=== PATIENT | male | born 1975 | race African-American/Black ===

== ENCOUNTER 2018-01-29 17:48 | Emergency (ER) | payer SELFPAY ==
--- NOTE | 2018-01-29 19:40 | RAD ---
PA AND LATERAL OF THE CHEST: 01/29/18 INDICATION: Cough. IMPRESSION: No acute abnormality. The examination is not appreciably changed from comparison dated 05/17/09 or 10/23. POS: [facility]
== END 2018-01-29 18:50 | disposition home or self-care (01) ==
LOC: ERS 17:48
DX: J20.9 Acute bronchitis, unspecified (principal); B34.9 Viral infection, unspecified; J45.909 Unspecified asthma, uncomplicated
CPT/HCPCS: 71046

== ENCOUNTER 2019-09-27 08:19 | Outpatient (CLI) | payer OTHER ==
--- NOTE | 2019-09-27 09:43 | MRI ---
MR of the right shoulder without contrast INDICATION: Right shoulder pain. Strain of the right shoulder TECHNIQUE: Sagittal T1, axial and coronal PD fat sat, sagittal and coronal T2 fat sat images were obt ained of the right shoulder. COMPARISON: Right shoulder radiograph dated May 26, 2019 FINDINGS: Rotator cuff: There is a high-grade partial thickness articular surface tear involving the conjoined tendon at the footprint measuring 1.4 x 0.7 cm in its greatest AP and mediolateral dimensions respectively. The tear involves approximately two thirds of the width of the tendon insertion at the footprint. There is mild supraspinatus and infraspinatus tendinosis. There is a low-grade articular surface tear involving the cranial subscapularis at the footprint on image 16 of series 3 involving o ne third of the tendon thickness. Glenohumeral joint: There is a small articular cartilage fissure with subchondral cystlike abnormalit y involving the posterior inferior glenoid. The cyst measures 5.2 mm. Glenoid labrum: There is a full-thickness tear involving the posterior inferior, inferior, anterior i nferior and anterior glenoid labrum. There is a small para labral cyst seen along the inferior margin of the glenoid on image 11 of series 4 measuring 8.4 mm. There is an additional larger para la bral cyst seen along the anterior margin of the glenoid measuring 1.1 x 1.6 cm. The superior glenoid labrum appears intact. The biceps anchor appears intact. Biceps tendon and biceps anchor: There is mild tendinosis of the intra-articular biceps tendon. The b iceps tendon is located. Acromion clavicular joint: There is moderate AC joint osteoarthrosis. Subacromial subdeltoid space: Small amount of fluid is seen within the subacromial subdeltoid bursa. Axillary region: No lymphadenopathy. Surrounding shoulder musculature: There is nonspecific mild muscular atrophy of the teres minor. The remaining rotator cuff musculature appears within normal limits. The deltoid appears within normal limits. No abnormal mass is seen within the quadrangular space. IMPRESSION: 1. High-grade partial thickness articular surface tear of the conjoined tendon at the footprint. 2. Low-grade partial thickness articular surface tear of the cranial subscapularis at the footprint. 3. Glenoid labral tear with associated para labral cyst involving the glenoid labrum from 3:00 throug h the 9:00 position. 4. Nonspecific mild muscular atrophy of the teres minor. No quadrant airspace mass is identified. The deltoid has normal appearance. 5. Moderate AC joint osteoarthrosis. 6. Mild increased fluid in the subacromial subdeltoid bursa may reflect underlying bursitis.
== END 2019-09-27 08:20 | disposition home or self-care (01) ==
LOC: TBSIIMAG 08:19
PROVIDERS: ATTEND Family Medicine
DX: S46.911D Strain of unspecified muscle, fascia and tendon at shoulder and upper arm level, right arm, subsequent encounter (principal); M19.011 Primary osteoarthritis, right shoulder; M62.511 Muscle wasting and atrophy, not elsewhere classified, right shoulder; M25.811 Other specified joint disorders, right shoulder; S43.491A Other sprain of right shoulder joint, initial encounter; M24.111 Other articular cartilage disorders, right shoulder

== ENCOUNTER 2020-11-10 08:24 | Outpatient (CLI) | payer OTHER ==
[2020-11-10] MEDS ORDERED: Gadobenate Dimeglumine 529 MG/1 ML (20ML VIAL) ONE (09:00)
[2020-11-10] MEDS ORDERED: Iopamidol 300 61% 50 ML VIAL FS ONE (09:00)
[2020-11-10] MEDS ORDERED: EPINEPHrine 1 MG/ML AMP ONE (09:00)
[2020-11-10] MEDS ORDERED: Lidocaine 1% PF 10 ML AMP ONE (09:00)
[2020-11-10] MEDS ORDERED: Magnevist 469MG/ML 20 ML VIAL ONE (14:23)
== END 2020-11-10 08:25 | disposition home or self-care (01) ==
LOC: RAD 08:24
PROVIDERS: ATTEND Orthopaedic Surgery
DX: S46.011D Strain of muscle(s) and tendon(s) of the rotator cuff of right shoulder, subsequent encounter (principal); S46.911A Strain of unspecified muscle, fascia and tendon at shoulder and upper arm level, right arm, initial encounter; S43.431A Superior glenoid labrum lesion of right shoulder, initial encounter; S43.001A Unspecified subluxation of right shoulder joint, initial encounter; M19.011 Primary osteoarthritis, right shoulder
CPT/HCPCS: 23350; A9577; A9579; J0171; J2001; Q9967

== ENCOUNTER 2021-01-05 16:08 | Outpatient (CLI) | payer BC ==
[2021-01-05 18:05] LABS: #Eosinphils 0.2 10x3/uL (0.0-0.5); #Monocytes 0.7 10x3/uL (0.0-1.1); #Neutrophils 3.6 10x3/uL (1.5-8.4); %Basophils 0.3 % (0.0-2.0); %Eosinophils 2.6 % (0.0-6.0); %Monocytes 10.5 % (0.0-10.0); %Neutrophils 56.3 % (40.0-75.0); Hemoglobin 13.3 g/dL (13.5-17.5); Mean Corpuscular HGB CONC 33.6 g/dL (32.0-36.0); Mean Corpuscular Hemoglobin 30.6 pg (27.0-33.0); Mean Corpuscular Volume 91.2 fl (81.2-95.1); Mean Platelet Volume 9.9 fl (7.4-10.4); Platelet Count 222 10x3/uL (150-450); RBC Distribution Width 12.5 % (11.5-14.5); Red Blood Cell (RBC) Count 4.34 10x6/uL (4.32-5.72); White Blood Cell (WBC) Count 6.5 10x3/uL (3.5-10.5)
[2021-01-06 02:53] LABS: SARS-CoV-2 PCR by NAA Not Detected (NotDetected)
== END 2021-01-05 16:09 | disposition home or self-care (01) ==
LOC: LABBT 16:08
PROVIDERS: ATTEND Orthopaedic Surgery
DX: Z01.818 Encounter for other preprocedural examination (principal); S46.119A Strain of muscle, fascia and tendon of long head of biceps, unspecified arm, initial encounter; S46.011A Strain of muscle(s) and tendon(s) of the rotator cuff of right shoulder, initial encounter; S43.431A Superior glenoid labrum lesion of right shoulder, initial encounter; Z20.822 Contact with and (suspected) exposure to COVID-19
CPT/HCPCS: 85025; 87635; 93005; 93010; U0003; U0005

== ENCOUNTER 2021-01-10 05:59 | Observation (INO) | payer BC ==
[2021-01-09 10:43] VITALS: BMI 38.0
[2021-01-10] MEDS ORDERED: Midazolam HCl 2 mg/2 ml Vial ONE ×2 (06:43→06:47)
[2021-01-10] MEDS ORDERED: Fentanyl 100 MCG/2 ML VIAL ONE ×2 (06:43→06:47)
[2021-01-10] MEDS ORDERED: Lidocaine 1% w/Epinephrine 1:100K 20 ML VIAL ONE (06:52)
[2021-01-10] MEDS ORDERED: Bupivacaine 0.25% HCL 30 ML VIAL ONE (06:52)
[2021-01-10] MEDS ORDERED: Ketorolac Tromethamine 30 MG/ML VIAL ONE (07:38)
[2021-01-10] MEDS ORDERED: PROPOFOL 200 MG/20 ML VIAL ONE (07:38)
[2021-01-10] MEDS ORDERED: ePHEDrine 50 MG/ML VIAL ONE (07:38)
[2021-01-10] MEDS ORDERED: Rocuronium Bromide 10 MG/ML (10ML VIAL) ONE (07:38)
[2021-01-10] MEDS ORDERED: Lidocaine 1% PF 5 ML VIAL ONE (07:38)
[2021-01-10] MEDS ORDERED: Ondansetron PF 4 MG/2 ML Vial ONE (07:38)
[2021-01-10] MEDS ORDERED: Glycopyrrolate 0.2 MG/ML 5 ML SYRINGE ONE (07:38)
[2021-01-10] MEDS ORDERED: Dexamethasone 20 MG/5 ML VIAL ONE (07:38)
[2021-01-10] MEDS ORDERED: Ropivacaine 0.5% HCl/PF (150 MG/30 ML VIAL) ONE (07:38)
[2021-01-10] MEDS ORDERED: traMADol HCl 50 MG TAB PO PRN ×2 (10:00)
[2021-01-10] MEDS ORDERED: HYDROcodone/Acetaminophen 5/325 mg Tablet PO PRN (10:00)
[2021-01-10] MEDS ORDERED: Zolpidem Tartrate 5 MG TAB PO PRN (10:00)
[2021-01-10] MEDS ORDERED: Promethazine HCl 25 MG/ML VIAL IM PRN (10:00)
[2021-01-10] MEDS ORDERED: Ropivacaine 0.2% 550 ML 550 ML NERVE BLCK SCH (10:00)
[2021-01-10] MEDS ORDERED: Ondansetron PF 4 MG/2 ML Vial IVP PRN (10:00)
[2021-01-10] MEDS ORDERED: Iopamidol-370 76% 500 ML 1 ML ONE (14:56)
[2021-01-10] MEDS ORDERED: Nitroglycerin 0.4 MG TAB (25 Tab Bottle) SL PRN (16:05)
[2021-01-10] MEDS ORDERED: Calcium Carbonate 500 MG ChewTAB PO PRN (16:05)
[2021-01-10] MEDS ORDERED: Ondansetron ODT 4 MG TAB PO PRN (16:05)
[2021-01-10] MEDS ORDERED: Albuterol 200 PUFF (6.7GM INHALER) INH PRN (17:29)
[2021-01-10 19:22] LABS: Troponin I Less than 0.010 ng/mL (< 0.028)
[2021-01-11 00:58] LABS: Troponin I Less than 0.010 ng/mL (< 0.028)
[2021-01-11 05:17] LABS: Cardiac Risk 6.9 (Less than 4.5)
[2021-01-11 05:20] LABS: Troponin I 0.015 ng/mL (< 0.028)
[2021-01-11 07:26] LABS: Phosphorus 3.4 mg/dL (2.3-4.7)
[2021-01-11] MEDS ORDERED: Acetaminophen/Codeine 30-300mg Tablet PO PRN ×2 (07:30)
[2021-01-11] MEDS: HYDROcodone/Acetaminophen 5/325 mg Tablet PO PRN ×2 (08:03→11:53)
[2021-01-11 08:07] LABS: Anion Gap 15 mmol/L (10-20); BUN (Urea Nitrogen) 16 mg/dL (8.9-20.6); Calc. Creatinine Clearance 141 mL/min (70-130); Calcium 8.4 mg/dL (7.8-10.44); Carbon Dioxide 23 mmol/L (22-29); Chloride 104 mmol/L (98-107); Glucose 178 mg/dL (70-105); Magnesium 1.8 mg/dL (1.6-2.6); Sodium 138 mmol/L (136-145)
[2021-01-11] MEDS ORDERED: Lisinopril 2.5 MG TAB PO SCH (09:00)
[2021-01-11] MEDS ORDERED: Enoxaparin Sodium 40 MG/0.4 ML SYRINGE SC SCH (09:00)
[2021-01-11 12:09] VITALS: BP 183/94; TEMP 99.1
[2021-01-11] MEDS ORDERED: Atorvastatin Calcium 20 MG TAB PO SCH (21:00)
== END 2021-01-11 13:02 | disposition home or self-care (01) ==
LOC: SDC 05:59 → 2SW 16:05
PROVIDERS: ADMIT Orthopaedic Surgery; ATTEND Orthopaedic Surgery
PROC: 0RHJ04Z Insertion of Internal Fixation Device into Right Shoulder Joint, Open Approach (ICD-10-PCS; principal; 2021-01-10)
PROC: 0LQ14ZZ Repair Right Shoulder Tendon, Percutaneous Endoscopic Approach (ICD-10-PCS; 2021-01-10)
PROC: 0RNJ4ZZ Release Right Shoulder Joint, Percutaneous Endoscopic Approach (ICD-10-PCS; 2021-01-10)
PROC: 0PB94ZZ Excision of Right Clavicle, Percutaneous Endoscopic Approach (ICD-10-PCS; 2021-01-10)
PROC: 0LS30ZZ Reposition Right Upper Arm Tendon, Open Approach (ICD-10-PCS; 2021-01-10)
PROC: 3E0T3BZ Introduction of Anesthetic Agent into Peripheral Nerves and Plexi, Percutaneous Approach (ICD-10-PCS; 2021-01-10)
DX: M75.111 Incomplete rotator cuff tear or rupture of right shoulder, not specified as traumatic (principal); M19.011 Primary osteoarthritis, right shoulder; S43.491A Other sprain of right shoulder joint, initial encounter; M75.81 Other shoulder lesions, right shoulder; R07.89 Other chest pain; I10 Essential (primary) hypertension; J45.909 Unspecified asthma, uncomplicated; R73.03 Prediabetes; E78.5 Hyperlipidemia, unspecified; E03.9 Hypothyroidism, unspecified; J98.11 Atelectasis; E66.9 Obesity, unspecified; Z68.38 Body mass index [BMI] 38.0-38.9, adult; Z79.899 Other long term (current) drug therapy; Z88.5 Allergy status to narcotic agent; G89.18 Other acute postprocedural pain
CPT/HCPCS: 36415; 71275; 80048; 80061; 83036; 83735; 84100; 84439; 84443; 84484; 93005; 93010; 94760; 96374; A4306; C1713; G0378; J0690; J1100; J1885; J2250; J2405; J2704; J2795; J3010; J3490; J7620; Q9967; S0020

== ENCOUNTER 2021-01-16 22:28 | Inpatient (IN) | payer BC ==
[2021-01-16 23:09] LABS: #Eosinphils 0.2 thou/uL (0.0-0.7); #Lymphocytes 1.4 thou/uL (1.20-3.40); #Monocytes 0.9 thou/uL (0.11-0.59); #Neutrophils 6.5 thou/uL (1.40-6.50); %Basophils 0.1 % (0.0-1.0); %Eosinophils 2.3 % (0.0-10.0); %Lymphocytes 15.5 % (21.0-51.0); %Monocytes 9.4 % (0.0-10.0); %Neutrophils 72.7 % (42.0-75.0); Hemoglobin 13.7 g/dL (14.0-18.0); Mean Corpuscular HGB CONC 34.1 g/dL (32.0-36.0); Mean Corpuscular Hemoglobin 30.6 pg (27.0-31.0); Mean Corpuscular Volume 89.6 fL (78.0-98.0); Mean Platelet Volume 7.1 fL (7.4-10.4); Platelet Count 234 thou/uL (130-400); RBC Distribution Width 11.9 % (11.5-14.5); Red Blood Cell (RBC) Count 4.47 mill/uL (4.70-6.10)
[2021-01-16 23:30] LABS: ALT (SGPT) 80 U/L (8-55); AST (SGOT) 33 U/L (5-34); Alkaline Phosphatase 109 U/L (40-110); Anion Gap 12 mmol/L (10-20); BUN (Urea Nitrogen) 15 mg/dL (8.9-20.6); Bilirubin, Total 0.4 mg/dL (0.2-1.2); Calc. Creatinine Clearance 0 mL/min (70-130); Calcium 9.3 mg/dL (7.8-10.44); Carbon Dioxide 30 mmol/L (22-29); Chloride 99 mmol/L (98-107); Globulin 3.4 g/dL (2.4-3.5); Glucose 232 mg/dL (70-105); Protein, Total 7.4 g/dL (6.0-8.3); Sodium 137 mmol/L (136-145)
[2021-01-16] MEDS ORDERED: VANCOMYCIN 2 GRAM/400 ML BAG 2 GM in Premix Bag 1 BAG IVPB SCH (23:30)
[2021-01-16 23:50] LABS: Bilirubin Negative (Negative); Blood, Urine Negative (Negative); Clarity Clear (Clear); Glucose, Urine (Dipstick) 300 mg/dL (Negative); Ketone, Urine Negative (Negative); Leukocyte Negative Leu/uL (Negative); Nitrite Negative (Negative); Protein, Urine (Dipstick) Negative (Neg-Trace); Specific Gravity, Urine 1.011 (1.002-1.036); Urobilinogen Normal mg/dL (Less than 2); pH, Urine 5.5 (5.0-9.0)
[2021-01-17] MEDS ORDERED: HYDROcodone/Acetaminophen 5/325 mg Tablet PO PRN (02:04)
[2021-01-17] MEDS ORDERED: Ondansetron ODT 4 MG TAB SL PRN (02:15)
[2021-01-17] MEDS ORDERED: Ondansetron PF 4 MG/2 ML Vial IVP PRN (02:15)
[2021-01-17] MEDS ORDERED: Acetaminophen 325 MG TAB ONE ×2 (02:52→08:45)
[2021-01-17] MEDS: Acetaminophen 325 MG TAB PO PRN ×2 (02:57→08:49)
[2021-01-17] MEDS ORDERED: HYDROcodone/Acetaminophen 5/325 mg Tablet ONE (08:39)
[2021-01-17 09:36] LABS: SARS-CoV-2 PCR by NAA Not Detected (NotDetected)
== END 2021-01-17 13:15 | disposition home or self-care (01) | DRG 864 ==
LOC: ERS 22:28 → ERHOLD 01-17 00:06
PROVIDERS: ADMIT Orthopaedic Surgery; ATTEND Orthopaedic Surgery
DX: R50.82 Postprocedural fever (principal); L23.1 Allergic contact dermatitis due to adhesives; I10 Essential (primary) hypertension; J45.909 Unspecified asthma, uncomplicated
CPT/HCPCS: 71045; 80053; 81003; 83605; 85025; 87040; 87635; 93005; 96365; J3370; U0003; U0005

== ENCOUNTER 2022-10-31 11:43 | Outpatient (CLI) | payer OTHER | END 2022-10-31 11:44 | disposition home or self-care (01) | LOC: BICRAD 11:43 → RAD 11:44 | PROVIDERS: ATTEND Internal Medicine | DX: Z02.71 Encounter for disability determination (principal) | CPT/HCPCS: 72100 ==